=== PATIENT | female | born 1985 | race Caucasian/White ===

== ENCOUNTER 2016-12-26 07:49 | Emergency (ER) | payer BC ==
[~2016-12-26] VITALS: Ht 177.8 cm; Wt 69.0 kg
[2016-12-26] MEDS ORDERED: CELEBREX 200 M200 M1 PO (08:24)
[2016-12-26] MEDS ORDERED: HYDROXYCHLOROQ200 M1 PO (08:24)
[2016-12-26] MEDS ORDERED: TOPAMAX 100 MG100 MG PO (08:24)
[2016-12-26 08:29] LABS: ABSOLUTE NEUTROPHILS 5.2 thou/uL (1.4-8.2); BASOPHILS 0.6 % (0.0-2.0); EOSINOPHILS 2.4 % (0.0-3.0); HEMATOCRIT 38.9 % (37.0-47.0); HEMOGLOBIN 13.1 gm/dL (12.0-15.0); LYMPHOCYTES 24.8 % (24.0-44.0); MCH 30.6 pg (26.0-34.0); MCHC 33.7 g/dL (28.0-37.0); MCV 90.6 fL (80.0-100.0); MONOCYTES 9.2 % (1.0-8.0); PLATELET COUNT 298 thou/uL (150-400); RBC 4.29 mil/uL (4.20-5.00); RDW 13.6 % (10.5-14.5); WBC 8.3 thou/uL (4.0-11.0)
[2016-12-26 08:40] LABS: MANUAL DIFF NO
[2016-12-26 09:03] LABS: CALCIUM 8.9 mg/dL (8.5-10.1); CREATININE 0.8 mg/dL (0.6-1.0); POTASSIUM 3.7 mmol/L (3.5-5.1)
[2016-12-26] MEDS ORDERED: PHENERGAN 25 MG25 M1 PO (10:21)
[2016-12-26 10:39] VITALS: BP 101/70
== END 2016-12-26 10:40 | disposition home or self-care (01) ==
LOC: ER 07:49
PROVIDERS: Emergency Medicine
DX: R51 Headache (principal); Z88.1 Allergy status to other antibiotic agents; Z88.2 Allergy status to sulfonamides